=== PATIENT | male | born 1995 | race African-American/Black ===

== ENCOUNTER 2022-02-23 08:02 | Emergency (ER) | payer SELFPAY ==
[2022-02-23] MEDS ORDERED: Fluorescein Opthalmic Strip ONE ×2 (08:52)
[2022-02-23] MEDS ORDERED: Proparacaine 0.5% Opth 15 ML BOT EA EYE SCH (09:00)
[2022-02-23] MEDS ORDERED: HYDROcodone/Acetaminophen 5/325 mg Tablet ONE (10:51)
== END 2022-02-23 10:50 | disposition home or self-care (01) ==
LOC: CSHERS 08:02
DX: T15.02XA Foreign body in cornea, left eye, initial encounter (principal)
CPT/HCPCS: 99283